=== PATIENT | male | born 1990 | race Hispanic/Latino ===

== ENCOUNTER 2024-02-07 22:42 | Emergency (ER) | payer BC ==
[~2024-02-07] VITALS: Ht 188 cm; Wt 140.6 kg
[2024-02-07 22:43] VITALS: BP 163/89; PULSE 96; RESP 20; TEMP 100
[2024-02-07 23:18] LABS: SARS-CoV-2, RNA, NAAT NEGATIVE SARS CoV-2 (NEGATIVE)
[2024-02-07 23:22] LABS: RAPID GROUP A STREP negative (NEGATIVE)
[2024-02-07 23:28] LABS: INFLUENZA TYPE A Negative For Type A (NEGATIVE); INFLUENZA TYPE B Negative For Type B (NEGATIVE)
[2024-02-08 01:00] VITALS: TEMP 100
[2024-02-08] MEDS: acetaMINOPHEN 500 MG TABLET PO ONE (01:00)
[2024-02-08] MEDS: IBUPROFEN 800 MG TAB PO ONE (01:00)
== END 2024-02-08 01:06 | disposition home or self-care (01) ==
LOC: EDH 22:42
DX: J02.9 Acute pharyngitis, unspecified (principal); Z20.822 Contact with and (suspected) exposure to COVID-19; R52 Pain, unspecified
CPT/HCPCS: 87635; 87804; 87880